=== PATIENT | male | born 1955 | race African-American/Black ===

== ENCOUNTER 2018-12-16 14:08 | Inpatient (IN) | payer MEDICAID, OTHER ==
[~2018-12-16] VITALS: Ht 165.1 cm; Wt 79.8 kg
[2018-12-16] MEDS ORDERED: METHYLPREDNISOLONE SOD SUCC 125 MG/2 ML VIAL IV STA (14:34)
[2018-12-16] MEDS ORDERED: IPRATROPIUM BROMIDE (0.02%) 0.5MG/2.5ML NEB HHN STA (14:34)
[2018-12-16] MEDS ORDERED: ALBUTEROL (0.083%) 2.5MG/3ML NEB HHN STA (14:34)
[2018-12-16] MEDS ORDERED: SODIUM CHLORIDE 0.9% 500 ML IV ONE (14:45)
[2018-12-16] MEDS ORDERED: ASPIRIN 81MG TABLET PO ONE (14:45)
[2018-12-16 15:24] LABS: BASOPHILS % 0.2 % (0.0-2.0); EOSINOPHILS % 1.3 % (0.0-5.0); HEMATOCRIT. 34.7 % (42.0-52.0); HEMOGLOBIN. 11.9 g/dL (14.0-18.0); LYMPHOCYTES % 29.6 % (20.0-50.0); MEAN CORPUSCULAR HEMOGLOBIN 31.3 pg (28.0-32.0); MEAN CORPUSCULAR VOLUME 91.6 fL (80.0-94.0); MEAN PLATELET VOLUME 8.5 fl (7.4-10.4); MONOCYTES % 10.9 % (2.0-8.0); PLATELET 157 x1000/uL (130-400); RED BLOOD CELL COUNT 3.79 mill/uL (4.7-6.1); RED CELL DISTRIBUTION WIDTH 13.9 % (11.6-14.6)
[2018-12-16 15:28] LABS: CHLORIDE 104 mEq/L (98-107)
[2018-12-16] MEDS ORDERED: ACETAMINOPHEN 325MG TABLET PO PRN (19:30)
[2018-12-16] MEDS ORDERED: DOCUSATE SODIUM 100MG CAPSULE PO PRN (19:30)
[2018-12-16] MEDS ORDERED: HYDROCODONE/ACETAMINOPHEN 10/325MG TABLET PO PRN (19:30)
[2018-12-16] MEDS ORDERED: MAGNESIUM/ALUMINUM HYDROXIDE/SIMETHICONE 30ML UDC PO PRN (19:30)
[2018-12-16] MEDS ORDERED: ONDANSETRON HCL 4MG/2ML INJ IV PRN (19:30)
[2018-12-16] MEDS ORDERED: GUAIFENESIN 200MG/10ML SUGAR FREE UDC PO PRN (19:30)
[2018-12-16] MEDS ORDERED: HYDRALAZINE 20MG/ML VIAL IV PRN (19:30)
[2018-12-16] MEDS ORDERED: HYDROMORPHONE HCL/PF 2MG/ML CPJ IV PRN (19:30)
[2018-12-16] MEDS ORDERED: IPRATROPIUM/ALBUTEROL 0.5-3(2.5)MG/3ML NEB INH PRN (19:30)
[2018-12-16] MEDS ORDERED: LORAZEPAM 2MG/ML CPJ IV PRN (19:30)
[2018-12-16] MEDS ORDERED: DIPHENHYDRAMINE 50MG/ML VIAL IV PRN (19:30)
[2018-12-16] MEDS ORDERED: CLONIDINE 0.1MG TABLET PO PRN (19:30)
[2018-12-16 20:00] VITALS: BP 152/88
[2018-12-16 21:00] VITALS: BP 152/88
[2018-12-16] MEDS ORDERED: ENOXAPARIN 40MG/0.4ML SYR SUBCUT SCH (21:15)
[2018-12-16] MEDS: METHYLPREDNISOLONE SOD SUCC 125 MG/2 ML VIAL IV SCH (21:50)
[2018-12-16] MEDS: SODIUM CHLORIDE 0.9% INJ 3ML FLUSH IVF SCH (21:56)
[2018-12-17] VITALS: BP 91/55
[2018-12-17 00:11] LABS: CREATINE KINASE 346 IU/L (39-308)
[2018-12-17 00:13] LABS: CREATINE KINASE MB FRACTION 5.4 ng/mL (0.5-3.6)
[2018-12-17 04:00] VITALS: BP 120/79
[2018-12-17] MEDS: METHYLPREDNISOLONE SOD SUCC 125 MG/2 ML VIAL IV SCH ×2 (06:06→09:11)
[2018-12-17] MEDS: SODIUM CHLORIDE 0.9% INJ 3ML FLUSH IVF SCH (06:16)
[2018-12-17 07:10] LABS: BASOPHILS % 0.1 % (0.0-2.0); HEMATOCRIT. 34.7 % (42.0-52.0); HEMOGLOBIN. 11.7 g/dL (14.0-18.0); LYMPHOCYTES % 13.7 % (20.0-50.0); MEAN PLATELET VOLUME 8.4 fl (7.4-10.4); MONOCYTES % 1.6 % (2.0-8.0); NEUTROPHILS % 84.6 % (40.0-76.0); PLATELET 140 x1000/uL (130-400); RED BLOOD CELL COUNT 3.77 mill/uL (4.7-6.1); RED CELL DISTRIBUTION WIDTH 13.7 % (11.6-14.6)
[2018-12-17 07:18] LABS: CHLORIDE 108 mEq/L (98-107)
[2018-12-17 07:33] LABS: CREATINE KINASE 295 IU/L (39-308); LDL CHOLESTEROL 59 mg/dL (5-100)
[2018-12-17 07:34] LABS: CREATINE KINASE MB FRACTION 4.1 ng/mL (0.5-3.6); HDL CHOLESTEROL 60 mg/dL (40-59)
[2018-12-17 07:35] LABS: T4 FREE 1.11 ng/dL (0.76-1.46)
[2018-12-17 08:00] VITALS: BP 126/80
[2018-12-17] MEDS ORDERED: ASPIRIN 81MG EC TABLET PO SCH (09:00)
[2018-12-17] MEDS ORDERED: INFLUENZA VIRUS VACCINE(AFLURIA) 0.5ML SYR IM ONE (09:00)
== END 2018-12-17 09:16 | disposition left against medical advice (07) | DRG 140 ==
LOC: ER 14:08 → 8WST 17:42 → EDBEDREQ 17:43 → EDBEDREQTM 17:43 → ENRESERV 18:27
PROVIDERS: ADMIT Internal Medicine; ATTEND Internal Medicine
DX: J44.1 Chronic obstructive pulmonary disease with (acute) exacerbation (principal); E46 Unspecified protein-calorie malnutrition; D64.9 Anemia, unspecified; I10 Essential (primary) hypertension; R74.0 Nonspecific elevation of levels of transaminase and lactic acid dehydrogenase [LDH]; Z68.29 Body mass index [BMI] 29.0-29.9, adult
CPT/HCPCS: 36415; 71045; 80061; 82550; 82553; 83880; 84439; 84443; 84484; 93005; 94640; 96374; 99285; J1650; J2405; J2930; J7040; J7611

== ENCOUNTER 2021-07-08 06:39 | Emergency (ER) | payer MEDICAID ==
[~2021-07-08] VITALS: Ht 172.7 cm; Wt 82.0 kg
[2021-07-08 07:44] VITALS: BP 150/91
[2021-07-08] MEDS ORDERED: IBUP-2029 MT (07:47)
== END 2021-07-08 08:18 | disposition home or self-care (01) ==
LOC: ER 06:39
DX: F11.90 Opioid use, unspecified, uncomplicated (principal); I10 Essential (primary) hypertension; Z13.9 Encounter for screening, unspecified
CPT/HCPCS: 99282

== ENCOUNTER 2022-12-31 09:37 | Emergency (ER) | payer MEDICAID ==
[~2022-12-31] VITALS: Ht 180.3 cm; Wt 63.0 kg
[~2022-12-31 09:37] MED LIST: IBUP-2029 MT
[2022-12-31 09:42] VITALS: BP 132/78
[2022-12-31] MEDS ORDERED: IOHEXOL-350 100 ML BOTTLE ONE (10:16)
[2022-12-31 10:37] LABS: HEMATOCRIT. 33.4 % (42.0-52.0); HEMOGLOBIN. 11.4 g/dL (14.0-18.0); MEAN CORPUSCULAR HEMOGLOBIN 31.3 pg (28.0-32.0); MEAN CORPUSCULAR VOLUME 91.4 fL (80.0-94.0); MEAN PLATELET VOLUME 7.7 fl (7.4-10.4); PLATELET 165 x1000/uL (130-400); RED BLOOD CELL COUNT 3.66 mill/uL (4.7-6.1); RED CELL DISTRIBUTION WIDTH 13.4 % (11.6-14.6)
[2022-12-31 10:44] LABS: CHLORIDE 104 mEq/L (98-107)
[2022-12-31 10:53] LABS: CLARITY URINE CLEAR (CLEAR); COLOR URINE YELLOW (YELLOW); KETONES URINE NEGATIVE (NEGATIVE); LEUKOCYTE ESTERASE URINE NEGATIVE (NEGATIVE); NITRITE URINE NEGATIVE (NEGATIVE); OCCULT BLOOD URINE NEGATIVE (NEGATIVE); PROTEIN URINE NEGATIVE (NEGATIVE); SPECIFIC GRAVITY URINE 1.049 (1.005-1.030)
[2022-12-31 10:54] LABS: PLATELET ESTIMATE NORMAL
[2022-12-31 11:03] LABS: ETHANOL BLOOD < 10 mg/dL
[2022-12-31 11:19] LABS: *AMPHETAMINES SCREEN URINE NEGATIVE (NEGATIVE); *BARBITURATES SCREEN URINE NEGATIVE (NEGATIVE); *BENZODIAZEPINES SCREEN URINE NEGATIVE (NEGATIVE); *COCAINE SCREEN URINE PRESUMTIVE POSITIVE (NEGATIVE); CANNABINOID URINE SCREEN NEGATIVE (NEGATIVE); METHADONE URINE SCREEN NEGATIVE (NEGATIVE); OPIATES URINE SCREEN PRESUMTIVE POSITIVE (NEGATIVE); PHENCYCLIDINE URINE SCREEN NEGATIVE (NEGATIVE)
== END 2022-12-31 11:55 | disposition left against medical advice (07) ==
LOC: ER 09:37 → CANBEDREQ 11:53 → ER 11:55
DX: R41.82 Altered mental status, unspecified (principal); I10 Essential (primary) hypertension; J44.9 Chronic obstructive pulmonary disease, unspecified; J45.909 Unspecified asthma, uncomplicated; Z86.19 Personal history of other infectious and parasitic diseases
CPT/HCPCS: 36415; 70450; 70496; 70498; 71045; 80053; 80305; 80320; 81003; 82962; 85025; 93005; 99285; Q9967; Z7610; G0480